=== PATIENT | female | born 1955 | race Two or more races ===

== ENCOUNTER 2018-04-11 06:58 | Day surgery (SDC) | payer OTHER ==
[2018-04-10 09:54] LABS: BASOPHIL % 0.5 % (0-2); PLATELET COUNT 185 x10^3mcL (130-400)
[2018-04-10 09:58] LABS: RED CELL DISTRIBUTION WIDTH 15.1 % (11.5-14.5)
[2018-04-10 10:24] LABS: CALCIUM 8.5 mg/dL (8.5-10.1); CARBON DIOXIDE 32.3 mmol/L (21-32); CHLORIDE SERUM 109 mmol/L (98-107); CREATININE SERUM 0.6 mg/dL (0.6-1.0); GFR1 > 60 mL/min; GLUCOSE SERUM 129 mg/dL (74-106); POTASSIUM SERUM 4.2 mmol/L (3.5-5.1); SODIUM SERUM 146 mmol/L (136-145)
[~2018-04-11] VITALS: Ht 160 cm; Wt 93.9 kg
[2018-04-11 07:49] VITALS: BP 142/80
[2018-04-11 13:42] VITALS: BP 131/58
== END 2018-04-11 12:45 | disposition home or self-care (01) ==
LOC: DS 06:58 → OR 09:00 → GI 09:30 → DS 09:30 → OR 09:30 → DS 12:45
PROVIDERS: Internal Medicine
PROC: 0FC98ZZ Extirpation of Matter from Common Bile Duct, Via Natural or Artificial Opening Endoscopic (ICD-10-PCS; principal; 2018-04-11 09:30)
DX: K80.50 Calculus of bile duct without cholangitis or cholecystitis without obstruction (principal); I10 Essential (primary) hypertension; F17.210 Nicotine dependence, cigarettes, uncomplicated; E66.9 Obesity, unspecified; Z68.35 Body mass index [BMI] 35.0-35.9, adult
CPT/HCPCS: 43262; C1769; J1170; J1610; J2250; J2704; J3010; J7040; J7120; Q9967